=== PATIENT | female | born 1970 | race Caucasian/White ===

== ENCOUNTER 2016-11-23 22:20 | Emergency (ER) | payer OTHER ==
[2016-11-23 22:31] VITALS: BP 136/89
== END 2016-11-23 22:59 | disposition left against medical advice (07) ==
LOC: ED 22:20
DX: Z53.21 Procedure and treatment not carried out due to patient leaving prior to being seen by health care provider (principal)

== ENCOUNTER 2017-01-26 20:33 | Emergency (ER) | payer OTHER ==
[2017-01-26 23:11] VITALS: BP 118/88
== END 2017-01-26 23:11 | disposition home or self-care (01) ==
LOC: ED 20:33
DX: S61.411A Laceration without foreign body of right hand, initial encounter (principal); W25.XXXA Contact with sharp glass, initial encounter; Y93.89 Activity, other specified; Y99.8 Other external cause status; Y92.89 Other specified places as the place of occurrence of the external cause
CPT/HCPCS: 90715; J2001

== ENCOUNTER 2019-01-16 09:51 | Emergency (ER) | payer OTHER ==
[~2019-01-16] VITALS: Ht 152.4 cm; Wt 51.7 kg
[2019-01-16 09:52] VITALS: BP 124/85; Ht 152.4 cm; Wt 51.7 kg
== END 2019-01-16 11:12 | disposition home or self-care (01) ==
LOC: ED 09:51
DX: S39.012A Strain of muscle, fascia and tendon of lower back, initial encounter (principal); X58.XXXA Exposure to other specified factors, initial encounter; Y93.89 Activity, other specified; Y92.89 Other specified places as the place of occurrence of the external cause; Y99.8 Other external cause status
CPT/HCPCS: J1885